=== PATIENT | male | born 1960 | race African-American/Black ===

== ENCOUNTER 2016-04-08 10:28 | Outpatient (CLI) | payer OTHER ==
[~2016-04-08] VITALS: Ht 182.9 cm; Wt 77.1 kg
[2016-04-08] VITALS (10 sets, daily range): BP systolic 109–150; BP diastolic 73–92
[~2016-04-08 10:28] MED LIST: ASPI325T4 PO; SIMV40TA PO
[2016-04-08] MEDS ORDERED: IV 1/2 NORMAL SALINE 1,000 ML IV SCH (10:35)
[2016-04-08 10:55] LABS: HEMATOCRIT 47.4 % (39.0-53.0); HEMOGLOBIN 16.1 g/dL (13.0-17.5); RED BLOOD COUNT 5.02 x10^6/uL (4.30-5.70); RED CELL DISTRIBUTION WIDTH 13.6 % (11.5-14.5)
[2016-04-08 11:34] LABS: CALCIUM 9.5 mg/dL (8.5-10.1); CREATININE 1.1 mg/dL (0.7-1.3); GFR 83.8; POTASSIUM 4.3 mmol/L (3.5-5.1)
[2016-04-08] MEDS ORDERED: IOHEXOL 300 MG/ML 100ML VIAL. ONE (12:05)
[2016-04-08] MEDS ORDERED: LIDOCAINE 2% 20 ML VIAL. ONE (12:05)
[2016-04-08] MEDS ORDERED: MIDAZOLAM HCL 2 MG/2 ML VIAL. ONE (12:07)
[2016-04-08] MEDS ORDERED: FENTANYL PF 100 MCG/2 ML VIAL. ONE (12:07)
[2016-04-08 12:10] LABS: PROTHROMBIN TIME PATIENT 12.6 SEC (11.7-14.0)
--- NOTE | 2016-04-08 12:18 | PDOC ---
MODERATE SEDATION ASSESSMENT RISKS/ALTERNATIVES Risks/Alternatives Risks and alternatives of this type of sedation and procedure discussed with: RISK/ALTERNATIVES: Patient H & P ON CHART H & P H & P on chart and reviewed for co-morbid conditions and appropriate labs. H&P ON CHART: Yes STATUS PREG STATUS ASSESSED: Yes MEDS/ALLERGIES REVIEWED Meds/Allergies Reviewed Medications and Allergies including time and route of recently administered narcotics and sedatives. MEDS/ALLERGIES REVIEWED: Yes ASA RATING ASA RATING: II AIRWAY ASSESSMENT Airway Assessment Airway patency, oral function limitations, presence of caps, crowns, dentures, partials, and ability to extend neck assessed. AIRWAY ASSESSMENT: Yes MALLAMPATI SCORE MALLAMPATI SCORE: II PRE-SEDATION ASSESSMENT PRE-SEDATION ASSESSMENT: Yes MAGED SANDOVAL MD Apr 08, 2016 12:18
[2016-04-08] MEDS ORDERED: MIDAZOLAM HCL 2 MG/2 ML VIAL. IV ONE (12:45)
[2016-04-08] MEDS ORDERED: FENTANYL PF 100 MCG/2 ML VIAL. IV ONE (12:45)
[2016-04-08] MEDS ORDERED: IOHEXOL 300 MG/ML 100ML VIAL. IART ONE (12:45)
[2016-04-08] MEDS ORDERED: LIDOCAINE 2% 20 ML VIAL. IJ ONE (12:45)
--- NOTE | 2016-04-08 14:46 | CARD ---
APPROVED REPORT HISTORY The patient is a 55 year-old male with a history of : previous [place], previous CHF, coronary artery dise ase, hypertension, dyslipidemia. INDICATION The indication(s) include : unstable angina , chest pain, dyspnea. CASE TECHNIQUE The patient was brought electively into the cardiac catheterization lab. A timeout was performed conf irming the patient's name, date of , procedure, and site of procedure. All necessary parties wer e wearing the appropriate personal protective equipment and radiation monitoring devices. After expla ining the risks and benefits of the procedure, informed consent was obtained.(See nursing notes for m edications administered). The right groin was sterilely prepped and draped. The right femoral groin w as infiltrated with 2% Lidocaine subcutaneous anesthesia. During this case, Fluoroscopy and low osmol ar contrast were used for imaging. A sheath was inserted into the right femoral artery without diffic ulty. Coronary angiography was performed using coronary diagnostic catheters. The left coronary syste m was accessed and visualized with a Diagnostic catheter. The right coronary system was accessed and visualized with a Diagnostic catheter. The left ventricle was accessed and visualized with a Diagnost ic catheter. Left ventricular/Aortic Valve gradient assessed on pullback. Left ventriculogram was per formed in TORRE projection. An aortogram of the ascending aorta was performed. Pre-demployment femoral angiogram was performed . Closure device was deployed with a Angioseal without any complications. The patient tolerated the procedure well and there were no complications associated with the procedure. The Ascending Aortogram was done to evaluate for a separate ostium for the LAD since NO take off or o stium was seen for the LAD only the distal segment that filled from colaterals from the RCA Coronary Angiography The patient's coronary anatomy is co-dominant. The left main coronary artery is a large size vessel free of disease. The left main bifurcates to the left anterior descending and circumflex. The left anterior descending artery is a small size vessel . There is a 100% stenosis in the ostial s egment. The circumflex artery is a large size vessel free of disease. The first obtuse marginal branch is a l arge size vessel free of disease. The second obtuse marginal branch is a medium size vessel with sten osis. The third obtuse marginal branch is a small size vessel free of disease. The right coronary artery is a large size vessel free of disease. The right posterior descending castro ry is a small size vessel free of disease. The right posterolateral branch is a small size vessel onel e of disease. Left Ventriculography The left ventricle is dilated in size with poor contractility. The left ventricular ejection fraction is estimated to be 20%. The left ventricular end diastolic pressure is 24 mmHg. There was no gradien t across the aortic valve upon pullback. Aorta The Ascending Aorta is normal and no separate ostium was seen for the LAD or aberrant take off. 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 In view of the anatomy and the LV function I would recommend medical treatment, exercise and diet. Will see the pt in the office to discuss the treatment.
== END 2016-04-08 15:47 | disposition home or self-care (01) ==
LOC: CCL 10:28
PROVIDERS: ATTEND Internal Medicine Cardiovascular Disease
DX: I25.10 Atherosclerotic heart disease of native coronary artery without angina pectoris (principal); I10 Essential (primary) hypertension; I50.9 Heart failure, unspecified; E78.5 Hyperlipidemia, unspecified; I21.3 ST elevation (STEMI) myocardial infarction of unspecified site; F10.99 Alcohol use, unspecified with unspecified alcohol-induced disorder; F17.200 Nicotine dependence, unspecified, uncomplicated
CPT/HCPCS: 36415; 80048; 85027; 85610; 85730; 93458; 93567; C1769; C1771; C1892; G0269; J2250; J3010; Q9967

== ENCOUNTER → 2018-06-11 | Outpatient (CLI) | payer OTHER ==
[2016-04-08 15:30] VITALS: BP 138/88
[~2018-06-11] MED LIST changes: -ASPI325T4 PO; +ASPI325T8 PO; +REGADENOSON 0.4 MG/5 ML DISP.SYRIN. IV ONE
--- NOTE | 2018-06-11 14:12 | RAD ---
MR#: [id number] Date of Study: 06/11/2018 Ordering Physician: FLACA PATRICK Referring Physician: KEVEN HICKEY Tech: APPROVED REPORT Test Type: Pharmacological Stress Nurse/Tech: Mona Henao RN Test Indications: Dyspnea on exertion Cardiac History: smoker, arrythmia Medications: See Electronic Medical Record Medical History: See Electronic Medical Record Resting ECG: SR with BBB Resting Heart Rate: 68 bpm Resting Blood Pressure: 137/86mmHg Pretest Chest Pain: No chest pain Nurse/Tech Notes S1,S2 and lungs slightly diminished throughout. Patient attempted to walk on the treadmill but was u nable to maintain target heart rate in order to receive medication for complete test. Order placed f or a pharmacological stress test. Consent: The procedure was explained to the patient in lay terms. Informed consent was witnessed. Jarvis eout was entered into [facility]. History and Stress Test performed by LINDSEY Cody Pharm. Details Pharmacologic stress testing was performed using 0.4mg per 5ml of regadenoson given intravenously ove r 7-10 seconds. Stress Symptoms Dyspnea,headache,chest discomfort POST EXERCISE Reason for Termination: Infusion complete Target HR: No Max HR: 109 bpm Max Blood Pressure: 140/82mmHg Blood Pressure response to exercise: Normal blood pressure response during stress. Heart Rate response to exercise: WNL Chest Pain: Yes. see note above. Arrhythmia: No. ST Change: No. INTERPRETATION Stress EKG Conclusion: No evidence of stress induced EKG changes. LV Perfusion There is a large sized, severe in intensity, anteroseptal, anterior and apical infarct without any si gnificant reversibility or viability. There is a large sized, severe in intensity inferior wall predominantly FIXED defect with mild charlie-i nfarct reversibility. Wall Motion Mild global hypokinesis with an EF of 50% Other Information Quality:Fair Conclusion 1. No evidence of stress induced EKG changes 2. Large mid to distal anterior, apical and septal infarct with minimal reversibility 3. Low normal EF at 50% 4. Moderate to high risk study for future CV events. Signed by : Falca Patrick, Electronically Approved : 06/11/2018 14:11:38
== END | disposition home or self-care (01) ==
LOC: NM 09:07
PROVIDERS: ATTEND Internal Medicine Cardiovascular Disease
DX: I21.29 ST elevation (STEMI) myocardial infarction involving other sites (principal); I25.5 Ischemic cardiomyopathy
CPT/HCPCS: 78452; 93017; 96374; A9500; J2785

== ENCOUNTER → 2018-07-13 | Outpatient (CLI) | payer OTHER ==
[2016-04-08 15:30] VITALS: BP 138/88
[~2018-07-13] MED LIST changes: -REGADENOSON 0.4 MG/5 ML DISP.SYRIN. IV ONE
--- NOTE | 2018-07-14 12:36 | CARD ---
MR#: [id number] Date of Study: 07/13/2018 Ordering Physician: FLACA PATRICK, Referring Physician: FALCA PATRICK, Tech: Yu Carl APPROVED REPORT EXAM: Two-dimensional and M-mode echocardiogram with Doppler and color Doppler. Other Information Quality : AverageHR: 67bpm Technically limited study due to COPD INDICATION Cardiomyopathy RISK FACTORS Hypertension Hyperlipidemia Smoking 2D DIMENSIONS Left Atrium(2D)3.4 (1.6-4.0cm)IVSd1.1 (0.7-1.1cm) Aortic Root(2D)2.8 (2.0-3.7cm)LVDd5.8 (3.9-5.9cm) LVOT Diameter2.1 (1.8-2.4cm)PWd0.9 (0.7-1.1cm) LVDs2.9 (2.5-4.0cm)FS (%) 50.3 % SV132.9 mlLVEF(%)81.0 (>50%) Aortic Valve AoV Peak Jonas.112.7cm/sAoV VTI20.1cm AO Peak GR.5.1mmHgLVOT Peak Jonas.85.7cm/s LVOT VTI 16.18cmAO Mean GR.2mmHg ALVIN (VMAX)1.26ta5PIV (VTI)2.83cm2 Mitral Valve MV E Htzvyuix58.0cm/sMV DECEL [id number] MV A Vhlbycpn78.4cm/sMV KKX98wr E/A Ratio0.7MVA (PHT)2.43cm2 TDI E/Lateral E'4.8E/Medial E'6.7 Pulmonary Valve PV Peak Otojhdhq605.4cm/sPV Peak Grad.4mmHg Tricuspid Valve RAP [id number] Pulmonary Vein S1 Tsqxxzrr55.5cm/sD2 Ecmnonhm15.1cm/s PVa [id number] LEFT VENTRICLE The left ventricle is normal size. There is normal left ventricular wall thickness. The systolic func tion is mildly impaired. The Ejection Fraction is 45-50% There is slight global hypokinesis of the le ft ventricle with predominance in the eliot-septal and anterior casey. Transmitral Doppler flow duglas foster is Grade I-abnormal relaxation pattern. RIGHT VENTRICLE The right ventricle is normal size. There is normal right ventricular wall thickness. The right ventr icular systolic function is normal. ATRIA The left atrium size is normal. The right atrium size is normal. The interatrial septum is intact wit h no evidence for an atrial septal defect or patent foramen ovale as noted on 2-D or Doppler imaging. AORTIC VALVE The aortic valve is thickened but opens well, cannot rule out bicuspid valve Doppler and Color Flow r evealed trace aortic regurgitation. There is no significant aortic valvular stenosis. MITRAL VALVE The mitral valve is thickened but opens well. There is no evidence of mitral valve prolapse. There is no mitral valve stenosis. Doppler and Color-flow revealed trace mitral regurgitation. TRICUSPID VALVE The tricuspid valve is normal in structure and function. Doppler and Color Flow revealed trace tricus pid regurgitation. There is no tricuspid valve stenosis. PULMONIC VALVE The pulmonic valve is not well visualized. Doppler and Color Flow revealed no pulmonic valvular regur gitation. GREAT VESSELS The aortic root is normal in size. The IVC is normal in size and collapses >50% with inspiration. PERICARDIAL EFFUSION There is no evidence of significant pericardial effusion. Critical Notification Critical Value: No <Conclusion> The systolic function is mildly impaired. The Ejection Fraction is 45-50% There is slight global hypokinesis of the left ventricle with predominance in the eliot-septal and a nterior casey. The aortic valve is thickened but opens well, cannot rule out bicuspid valve Signed by : Flaca Patrick, Electronically Approved : 07/14/2018 12:35:58
== END | disposition home or self-care (01) ==
LOC: ECHO 14:01
PROVIDERS: ATTEND Internal Medicine Cardiovascular Disease
DX: I25.5 Ischemic cardiomyopathy (principal); I11.0 Hypertensive heart disease with heart failure; I50.9 Heart failure, unspecified; E78.5 Hyperlipidemia, unspecified; F17.200 Nicotine dependence, unspecified, uncomplicated
CPT/HCPCS: 93306

== ENCOUNTER → 2018-08-29 | Outpatient (CLI) | payer OTHER ==
[2016-04-08 15:30] VITALS: BP 138/88
--- NOTE | 2018-08-29 14:29 | RAD ---
PA and lateral chest x-ray without comparison for dyspnea. FINDINGS: The lungs are clear. There is mild flattening of the diaphragm which may indicate early COPD. There is a calcified granuloma in the right lung base. Cardiomediastinum is grossly unremarkable. IMPRESSION: 1. No acute cardiopulmonary abnormality. Hyperinflation may signify early COPD. Electronically signed by: Vladimir Casanova MD (08/29/2018 2:27 PM) [facility]
== END | disposition home or self-care (01) ==
LOC: RAD 13:52
PROVIDERS: ATTEND Internal Medicine Pulmonary Disease
DX: J84.10 Pulmonary fibrosis, unspecified (principal)
CPT/HCPCS: 71046

== ENCOUNTER → 2018-11-12 | Outpatient (CLI) | payer MEDICAID ==
[2016-04-08 15:30] VITALS: BP 138/88
--- NOTE | 2018-11-12 17:12 | RAD ---
EXAM: CT Chest without IV contrast CLINICAL HISTORY: Lung nodule COMPARISON: Chest radiograph 08/29/2018. TECHNIQUE: CT of the chest without intravenous contrast. Axial, coronal and sagittal reformatted images were generated. ---PQRS compliance statement - One or more of the following individualized dose reduction techniques were utilized for this study: 1. Automated exposure control 2. Adjustment of the mA and/or kV according to patient size 3. Use of iterative reconstruction technique--- FINDINGS: Lack of intravenous contrast limits evaluation of solid organs, vasculature, and lymph nodes. Chest: Heart is not enlarged. Coronary artery calcifications are seen. No pericardial effusion. No pleural effusion or pneumothorax. A few mildly prominent mediastinal lymph nodes are seen, not enlarged by size which area. No hilar lymphadenopathy within the constraints of this noncontrast examination. No axillary lymphadenopathy. A 2.6 x 1.2 cm left lower lobe lung nodule is seen (series 2 image 51) given the cylindrical appearance of this this is favored to represent cylindrical bronchiectasis with opacified airway. Several small satellite nodules are also seen, possibly opacified ileal branches. Right lower lobe calcified granuloma. Visualized Upper abdomen: Aortic calcifications are seen. Calcification within the pancreatic head. Upper abdomen is otherwise unremarkable. Bones: Degenerative changes of the spine are seen. IMPRESSION: Cylindrical nodular opacification of the left lower lobe likely from bronchiectasis and associated airway opacification. Consider short interval follow-up CT evaluation versus bronchoscopy for further evaluation. Electronically signed by: Jeremi Sawant MD (11/12/2018 5:09 PM) [facility]
== END | disposition home or self-care (01) ==
LOC: CT 15:38
PROVIDERS: ATTEND Internal Medicine Pulmonary Disease
DX: J98.4 Other disorders of lung (principal); R91.1 Solitary pulmonary nodule; I25.10 Atherosclerotic heart disease of native coronary artery without angina pectoris; I70.0 Atherosclerosis of aorta; K86.89 Other specified diseases of pancreas; M47.814 Spondylosis without myelopathy or radiculopathy, thoracic region
CPT/HCPCS: 71250

== ENCOUNTER 2018-12-06 08:59 | Outpatient (CLI) | payer MEDICAID ==
[2018-12-06] VITALS (11 sets, daily range): BP systolic 105–134; BP diastolic 65–86
[~2018-12-06] VITALS: Ht 182.9 cm; Wt 80.7 kg
[2018-12-06 09:37] LABS: HEMATOCRIT 47.5 % (39.0-53.0); HEMOGLOBIN 16.1 g/dL (13.0-17.5); RED BLOOD COUNT 4.96 x10^6/uL (4.30-5.70); RED CELL DISTRIBUTION WIDTH 13.8 % (11.5-14.5)
[2018-12-06 09:45] LABS: CALCIUM 8.9 mg/dL (8.5-10.1); GFR 92.5; POTASSIUM 4.1 mmol/L (3.5-5.1)
[2018-12-06] MEDS ORDERED: SACU1TAB PO (09:49)
[2018-12-06] MEDS ORDERED: ALBU2.5V8 INH (09:53)
[2018-12-06] MEDS ORDERED: LATA2.5D3 EACHEYE (09:53)
[2018-12-06] MEDS ORDERED: BRIM5DRO3 EACHEYE (09:53)
[2018-12-06] MEDS ORDERED: CARV3.1210 PO (09:53)
[2018-12-06] MEDS ORDERED: BRIN10DR EACHEYE (09:53)
[2018-12-06] MEDS ORDERED: IOHEXOL 300 MG/ML 100ML VIAL. ONE (10:06)
[2018-12-06] MEDS ORDERED: LIDOCAINE 1% PF 2 ML VIAL. ONE (10:06)
[2018-12-06] MEDS ORDERED: LIDOCAINE 1% Multi-Dose 20 ML VIAL. ONE (10:37)
[2018-12-06] MEDS ORDERED: MIDAZOLAM HCL/PF 2 MG/2 ML VIAL. ONE (10:47)
[2018-12-06] MEDS ORDERED: VERAPAMIL 5 MG/2 ML VIAL. ONE (10:47)
[2018-12-06] MEDS ORDERED: HEPARIN for IV BOLUS 10,000 UNIT/10 ML VIAL. ONE (10:47)
[2018-12-06] MEDS ORDERED: NITROGLYCERIN 200 MCG/2 ML SYRINGE FOR CATH/VASC LAB. ONE (10:47)
[2018-12-06] MEDS ORDERED: fentaNYL PF VIAL 100 MCG/2 ML VIAL ONE (10:47)
[2018-12-06] MEDS ORDERED: HEPARIN for IV BOLUS 10,000 UNIT/10 ML VIAL. IART ONE (11:30)
[2018-12-06] MEDS ORDERED: MIDAZOLAM HCL/PF 2 MG/2 ML VIAL. IV ONE (11:30)
[2018-12-06] MEDS ORDERED: IOHEXOL 300 MG/ML 100ML VIAL. IART ONE (11:30)
[2018-12-06] MEDS ORDERED: VERAPAMIL 5 MG/2 ML VIAL. IART ONE (11:30)
[2018-12-06] MEDS ORDERED: NITROGLYCERIN 200 MCG/2 ML SYRINGE FOR CATH/VASC LAB. IART ONE (11:30)
[2018-12-06] MEDS ORDERED: LIDOCAINE 1% Multi-Dose 20 ML VIAL. INJ ONE (11:30)
[2018-12-06] MEDS ORDERED: fentaNYL PF VIAL 100 MCG/2 ML VIAL IV ONE (11:30)
--- NOTE | 2018-12-06 13:08 | CARD ---
MR#: [id number] Date of Study: 12/06/2018 Ordering Physician: FLACA PATRICK, Referring Physician: FLACA PATRICK, Tech: RUBIN RAMIRES RTR APPROVED REPORT Technologist: RUBIN RAMIRES RTR Nurse: Yue Rojo R.N. Procedure(s) performed: MODERATE SEDATION TIME: 36 MIN FLUORO TIME:4.5 MIN DOSE:26.9 GYCM2 CONTRAST: 69 RHC, LHC, Coronary angiography HISTORY The patient is a 58 year-old male with a history of : coronary artery disease. INDICATION The indication(s) include : unstable angina . CSHA Clinical Frailty Scale CS Clinical Frailty Scale: Vulnerable Heart Failure Heart Failure: Yes If Yes, Newly Diagnosed: No If Yes, HF Type: Diastolic Systolic If Yes, NYHA Class: Class II PROCEDURE NARRATIVE INFORMED CONSENT: After explaining the risks and benefits of the procedure and alternatives, informed consent was obtained. The patient was brought electively to the cardiac catheterization lab. A timeout was performed confi rming the patient's name, date of , procedure, and site of procedure. All necessary personnel w ere wearing the appropriate protective equipment and radiation monitor devices. (See nursing notes for medications administered). ACCESS: The right wrist was sterilely prepped and draped in the usual fashion. The right wrist was infiltrat ed with 1 mL of 2% lidocaine for subcutaneous anesthesia. A 6 [place] Terumo glide sheath was inserte d into the right radial artery without difficulty. The right brachial vein IV was replaced under sterile conditions using a micropuncture wire and a 6Fr glidesheath was placed in the brachial vein w/o difficulty. CORONARY ANGIOGRAPHY: Right and left coronary angiography was performed using a 6Fr TIG 4.0 catheter. Left ventricular en d diastolic pressure was obtained with a pigtail catheter and pullback was performed after left ventr iculography. All catheter exchanges and advancements were performed over a guidewire. RHC: A 5fr PA catheter was advanced to the right heart chambers and pressures and saturations were ob tained. CLOSURE: At case completion the right radial sheath was removed and a Terumo radial band was applied with 13 m l of air. The right brachial vein sheath was removed and manual compression was used to achieve hemo stasis. COMPLICATIONS: The patient tolerated the procedure well and there were no immediate complications. FINDINGS: HEMODYNAMICS: LVEDP 10 mm Hg No gradient on LV to aortic pullback. AO: 128/78 Right heart catheter findings: RA 8 RV 17/7 PA and 18/8 Pulmonary capillary wedge pressure: 7 PA saturation: 77% FA saturation 98% LEFT VENTRICULOGRAM: EF 50% Anterobasal: Normal. Anterolateral: Moderate hypokinesis Apical: Moderate hypokinesis Diaphragmatic: Normal Posterobasal: Normal CORONARY ANGIOGRAPHY: LM is a large caliber vessel with normal angiographic appearance. LAD is a moderate sized negatively remodeled vessel with a flush ostial occlusion. The mid and distal vessel is seen to fill via robust right to left collaterals. Ramus is a moderate caliber vessel with normal angiographic apeparance. LCx is a moderate caliber non-dominant vessel with normal angiographic appearance. The mid to distal vessel is small in caliber OM1 is a large caliber vessel with normal angiographic appearance. RCA is a moderate to large caliber dominant vessel with a long diffuse mid 50% stenosis. RPDA and RPL are moderate caliber vessels with normal angiographic appearance. Conclusion 1. Normal biventricular filling pressures. 2. No significant pulmonary HTN 3. Normal cardiac output. 4. Two vessel coronary disease with chronic total occlusion of the LAD Recommendations 1. CABG versus LEARNING DEVELOPMENT SPECIALIST PCI. 2. Based on EKG, LV function/wall motion and prior stress testing, the LAD territory appears to be vi able. Signed by : Flaca Patrick, Electronically Approved : 12/06/2018 13:02:08
--- NOTE | 2018-12-06 14:49 | NUR ---
Discharge Note: KALE STANLEY Discharge instructions and discharge home medications reviewed with Patient and a copy given. All questions have been answered and understanding verbalized. The following instructions and handouts were given: radial site care and moderate sedation Discontinued lines and drains: Peripheral IV intact. Patient discharged to Home or Self Care withFamily Membervia Wheelchair
== END 2018-12-06 14:45 | disposition home or self-care (01) ==
LOC: CCL 08:59
PROVIDERS: ATTEND Internal Medicine Cardiovascular Disease
DX: I25.110 Atherosclerotic heart disease of native coronary artery with unstable angina pectoris (principal); I10 Essential (primary) hypertension; I25.2 Old myocardial infarction; F17.200 Nicotine dependence, unspecified, uncomplicated; Z86.73 Personal history of transient ischemic attack (TIA), and cerebral infarction without residual deficits; Z79.82 Long term (current) use of aspirin; Z98.890 Other specified postprocedural states
CPT/HCPCS: 36415; 80048; 85027; 85610; 93460; 99152; 99153; C1769; C1773; C1892; J1644; J2250; J3010; J3490; Q9967; 93453

== ENCOUNTER → 2019-06-12 | Outpatient (CLI) | payer MEDICAID ==
[2018-12-06 14:25] VITALS: BP 112/70
[~2019-06-12] MED LIST changes: +ALBU2.5V8 INH; +BRIM5DRO3 EACHEYE; +BRIN10DR EACHEYE; +CARV3.1210 PO; +LATA2.5D3 EACHEYE; +SACU1TAB PO
--- NOTE | 2019-06-12 15:46 | CARD ---
MR#: [id number] Date of Study: 06/12/2019 Ordering Physician: FLACA GUZMAN, Referring Physician: FLACA GUZMAN, Tech: Mahogany Su [facility] APPROVED REPORT EXAM: Two-dimensional and M-mode echocardiogram with Doppler and color Doppler. Other Information Quality : Good INDICATION Ischemic Cardiomyopathy 2D DIMENSIONS RVDd2.0 (2.9-3.5cm)Left Atrium(2D)2.7 (1.6-4.0cm) IVSd0.8 (0.7-1.1cm)Aortic Root(2D)2.9 (2.0-3.7cm) LVDd5.1 (3.9-5.9cm)LVOT Diameter2.1 (1.8-2.4cm) PWd0.9 (0.7-1.1cm)LVDs4.0 (2.5-4.0cm) FS (%) 20.9 %SV52.7 ml LVEF(%)42.3 (>50%) Aortic Valve AoV Peak Jonas.114.3cm/sAoV VTI21.4cm AO Peak GR.5.2mmHgLVOT Peak Jonas.77.7cm/s LVOT VTI 15.39cmAO Mean GR.2mmHg ALVIN (VMAX)2.21bs8INV (VTI)2.55cm2 Mitral Valve MV E Xgoxhojj19.5cm/sMV DECEL [id number] MV A Siepsrxr96.4cm/sMV JKV60qu E/A Ratio0.7MVA (PHT)2.51cm2 TDI E/Lateral E'6.1E/Medial E'6.9 Pulmonary Vein S1 Jasfoans07.0cm/sD2 Mowewupz45.8cm/s LEFT VENTRICLE The left ventricle is normal size. There is normal left ventricular wall thickness. The Ejection Frac tion is 45%. There is moderate hypokinesis in the mid to distal anteroseptal casey. Transmitral Doppl er flow pattern is Grade I-abnormal relaxation pattern. RIGHT VENTRICLE The right ventricle is normal size. The right ventricular systolic function is normal. ATRIA The left atrium size is normal. The right atrium size is normal. The interatrial septum is intact wit h no evidence for an atrial septal defect or patent foramen ovale as noted on 2-D or Doppler imaging. AORTIC VALVE The aortic valve is calcified but opens well. Doppler and Color Flow revealed no significant aortic r egurgitation. There is no significant aortic valvular stenosis. MITRAL VALVE The mitral valve is calcified but opens well. There is no evidence of mitral valve prolapse. There is no mitral valve stenosis. Doppler and Color Flow revealed no mitral valve regurgitation noted. TRICUSPID VALVE The tricuspid valve is normal in structure and function. Doppler and Color Flow revealed no tricuspid valve regurgitation noted. There is no tricuspid valve stenosis. PULMONIC VALVE The pulmonic valve is not well visualized. Doppler and Color Flow revealed no pulmonic valvular regur gitation. There is no pulmonic valvular stenosis. GREAT VESSELS The aortic root is normal in size. The ascending aorta is normal in size. The IVC is normal in size a nd collapses >50% with inspiration. PERICARDIAL EFFUSION There is no evidence of significant pericardial effusion. Critical Notification Critical Value: No <Conclusion> There is moderate hypokinesis in the mid to distal anteroseptal casey. The Ejection Fraction is 45%. Transmitral Doppler flow pattern is Grade I-abnormal relaxation pattern. There is no evidence of significant pericardial effusion. Signed by : King Gilbert, Electronically Approved : 06/12/2019 15:46:04
--- NOTE | 2019-06-13 07:52 | RAD ---
MR#: [id number] Date of Study: 06/12/2019 Ordering Physician: FLACA GUZMAN, Referring Physician: FLACA GUZMAN, Tech: Kwadwo Arredondo MBA, RDMS, RVT, RDCS, RTR APPROVED REPORT Patient Location: OUT-PATIENT Indications PAD VELOCITY AND DOPPLER WAVEFORM ANALYSIS RIGHT cm/secWaveformSeverity LEFT cm/secWaveform Severity dCFA 186.0MonophasicdCFA 151.0Biphasic Prof Fem Art. 190.0MonophasicProf Fem Art. 153.0Biphasic Fem Art Prox. 121.0BiphasicFem Art Prox. 100.0Biphasic Fem Art Mid. 141.0BiphasicFem Art Mid. 163.0Biphasic Fem Art Dist. 156.0BiphasicFem Art Dist. 114.0Biphasic Pop Art(Fossa) 79.0BiphasicPop Art(AK) 91.0Biphasic KIDNEY PULLER Prox. 61.0BiphasicPTA Prox. 44.0Biphasic KIDNEY PULLER Dist. 67.0BiphasicPTA Dist. 42.0Biphasic Per Art Mid. 55.0BiphasicPer Art Mid. 41.0Biphasic MIKE Prox. 44.0BiphasicATA Prox. 77.0Biphasic DPA 21BiphasicDPA 57Monophasic Findings Klein scale images of the LE arteries demonstrate mild diffuse plaque. FOREIGN CLERK velocities are monophasic suggestive of more proximal disease. No critical right or left LE arter ial disease noted above the knee. There is three vessel run-off below the knee bilaterally with probable mild to moderate disease diffu sely. Critical Notification Critical Value: No <Conclusion> 1. No critical LE arterial disease noted. Cannot rule out inflow disease in the aorta Signed by : Flaca Guzman, Electronically Approved : 06/13/2019 07:52:19
== END | disposition home or self-care (01) ==
LOC: ECHO 12:32
PROVIDERS: ATTEND Internal Medicine Cardiovascular Disease
DX: I08.0 Rheumatic disorders of both mitral and aortic valves (principal); I25.5 Ischemic cardiomyopathy; I73.9 Peripheral vascular disease, unspecified; I70.0 Atherosclerosis of aorta
CPT/HCPCS: 93306; 93925